=== PATIENT | female | born 1950 | race Caucasian/White ===

== ENCOUNTER 2016-06-18 15:41 | Emergency (ER) | payer OTHER ==
[2016-06-18 15:54] VITALS: TEMP 97.7
--- NOTE | 2016-06-18 16:18 | EDPHY ---
H & P Stated Complaint: mechanical fall down ~10 steps L ankle pain no loc no neck pain HPI/ROS: CHIEF COMPLAINT: fall, left ankle pain HISTORY OF PRESENT ILLNESS: patient was walking down a set of metal stairs in the snow approximately 2 hours ago when she slipped, falling down several stairs. She says she rolled down the last few stairs. She does have abrasions to the forehead, the dorsum of the right fingers, and the left hand. She primarily has a severe left ankle pain. Unable to attempt to walk on it due to pain. She has no loss of conscious. No headache. No neck pain or stiffness. No bruising or signs of trauma to the face. She has no chest or back pain. No abdominal pain. No pain in the upper extremities or right leg despite the abrasions. Does not take any medications of any kind. No other associated complaints or modifying factors. REVIEW OF SYSTEMS: Ten systems reviewed and are negative unless otherwise noted in the HPI EXAMINATION General Appearance: Alert, no distress Head: normocephalic . Superficial abrasion to the right forehead. No Chao sign. No ecchymosis of the forehead. No hematoma. No depression. No raccoon eyes. Eyes: Pupils equal and round, no conjunctival pallor or injection . EOMs intact. ENT, Mouth: Mucous membranes moist . Uvula midline. No erythema or edema. Neck: Normal inspection . No bony tenderness. Painless range of motion all planes. No step-off or deformity. Respiratory: No dyspnea or retractions. No distress Cardiovascular: Regular rate and rhythm. No murmur. Pulses intact distally. Symmetric DP, PT and radial pulses are 2+. Gastrointestinal: No distention . Nontender. No tympany. Neurological: A&Ox4, sensory symmetric, strength symmetric A 5/5. No pronator drift. No dysmetria. Skin: Warm and dry . Superficial abrasions to the right knee, dorsum of the right fingers 2 through 4, dorsum of the left hand and fingers. No lacerations. There is ecchymosis over the left lateral ankle. Extremities: Tender to palpation of the left lateral malleolus with associated ecchymosis. No crepitus. No tenderness of the left foot, ankle or proximal fibula. Range of motion not tested on the ankle due to pain. Range of motion of the left knee is fully intact. Range of motion of the right knee fully intact. No tenderness to palpation of the right knee. Neurovascular intact distal to the left ankle pain. DIFFERENTIAL DIAGNOSES: Including but not limited to Ankle fracture, ankle dislocation, ankle sprain, ecchymosis, contusion, abrasions, soft tissue injury, closed head injury MDM: 4:15 p.m. left ankle pain after fall. She does have some abrasions to the knee and the dorsum of the hands. There is a superficial abrasion to the forehead. No neuro deficits. No loss of conscious. No severe mechanism that would warrant a CT scan. She does not take any blood thinners. She has no headache of any kind. X-ray of the ankle Has been ordered 5:15 p.m. Ankle x-ray reveals no acute fracture of the distal fibula. There is mention of an abnormal appearance of the navicular, age indeterminate. I reexamined the patient, and the x-ray does not correlate clinically. She has no pain over the navicular or syndesmosis. She has no pain at the calcaneus or the posterior malleolar region. I do feel this is more likely to be a sprain. Given the ecchymosis I have placed her in a boot and crutches. She is to remain nonweightbearing at this painful, or weight-bearing as tolerated. I did discuss CT scan here in the emergency department, but I do not feel she would benefit from this As her x-ray does not correlate clinically. For acute navicular injury. Nor is there any evidence of navicular body fracture. She will be discharged home in the boot with crutches and instructed to follow up with Orthopedics in 1-2 weeks. She is to return to the ER for any worsening pain, numbness, tingling or cyanosis. She is comfortable with this plan and discharged home in stable condition. ED Precautions: Worsening pain. Erythema, edema, cyanosis, pallor, paresthesia or anesthesia. SUPERVISION: This patient was independently evaluated without the aide of supervising physician. Source: Patient - Personal History Current Tetanus/Diphtheria Vaccine: Unsure Current Tetanus Diphtheria and Acellular Pertussis (TDAP): Unsure - Medical/Surgical History Hx Asthma: No Hx Chronic Respiratory Disease: No Hx Diabetes: No Hx Cardiac Disease: No Hx Renal Disease: No Hx Cirrhosis: No Hx Alcoholism: No Hx HIV/AIDS: No Hx Splenectomy or Spleen Trauma: No Other PMH: denies - Social History Smoking Status: Never smoked Constitutional: Initial Vital Signs Temperature (C) 97.7 F 06/18/16 15:51 Heart Rate 76 06/18/16 15:51 Respiratory Rate 16 06/18/16 15:51 Blood Pressure 175/91 H 06/18/16 15:51 O2 Sat (%) 97 06/18/16 15:51 O2 Delivery Mode Room Air Allergies/Adverse Reactions: Sulfa (Sulfonamide Antibiotics) Allergy (Severe, Verified 09/16/12 18:43) Home Medications: Medication Instructions Recorded Miscellaneous Medical Supply [NO 1 ea MISC AD 09/16/12 HOME MEDS] oxyCODONE/APAP 5/325 [Percocet 1 tab PO Q6 #10 tab 09/16/12 5/325] Acetaminophen/Codeine 300/30Mg 1 each PO Q6 PRN #15 tab 06/18/16 [Tylenol #3 (*)] Departure - Departure Disposition: Home, Routine, Self-Care Clinical Impression: Left ankle sprain Qualifiers: Encounter type: initial encounter Involved ligament of ankle: unspecified ligament Qualified Code(s): S93.402A - Sprain of unspecified ligament of left ankle, initial encounter Condition: Good Instructions: Ankle Sprain (ED) Additional Instructions: follow-up with orthopedics in 1-2 days if no improvement in the pain. Return to ER for worsening pain, numbness or tingling of the foot. Weightbearing as tolerated with the boot and crutches. Nonweightbearing of painful Referrals: Gene Diaz MD [Primary Care Provider] - As per Instructions Sabi Zepeda MD [Medical Doctor] - As per Instructions Prescriptions: Acetaminophen/Codeine 300/30Mg [Tylenol #3 (*)] 1 each PO Q6 PRN #15 tab PRN Reason: Pain, Mild
[2016-06-18 17:30] VITALS: BP 142/62; PULSE 75; RESP 18; O2SAT 96
== END 2016-06-18 17:31 | disposition home or self-care (01) ==
DX: S93.402A Sprain of unspecified ligament of left ankle, initial encounter (principal); W10.8XXA Fall (on) (from) other stairs and steps, initial encounter
CPT/HCPCS: 73610; 99283; L4386

== ENCOUNTER 2018-08-17 17:00 | Emergency (ER) | payer OTHER ==
--- NOTE | 2018-08-17 17:27 | EDPHY ---
H & P Stated Complaint: Headache, nausea, anxiety - Personal History Current Tetanus Diphtheria and Acellular Pertussis (TDAP): Unsure - Medical/Surgical History Hx Asthma: No Hx Chronic Respiratory Disease: No Hx Diabetes: No Hx Cardiac Disease: No Hx Renal Disease: No Hx Cirrhosis: No Hx Alcoholism: No Hx HIV/AIDS: No Hx Splenectomy or Spleen Trauma: No Other PMH: head injury injury 02/2018 - Social History Smoking Status: Never smoked Time Seen by Provider: 08/17/18 17:15 HPI/ROS: Chief complaint: Headache History of present illness: This is a 67-year-old female who presents to the emergency department for a headache. She reports a severe, throbbing pain on the left side of her head. It began this afternoon. She had a similar headache yesterday afternoon. She also had a similar type headache last week. She denies specific precipitating factors. She denies alleviating factors. She has had associated nausea and occasional vomiting, dry mouth, and generalized malaise. She did see her doctor today who ordered blood studies which have yet to be reported to her. She does not have a history of headaches. She denies fever or cold symptoms. She denies trauma. This was not thunderclap in nature. No associated neurologic symptoms including paresthesias, weakness or paralysis or bowel or bladder dysfunction. Review of systems: A 10 point review of systems was obtained and other than described above was negative (Gene Sargent) - Physical Exam Exam: General Appearance: Alert, appears upset and anxious. Eyes: Pupils equal and round no pallor or injection. ENT, Mouth: Mucous membranes moist. Respiratory: There are no retractions, lungs are clear to auscultation. Cardiovascular: Regular rate and rhythm. Gastrointestinal: Abdomen is soft and non tender, no masses, bowel sounds normal. Neurological: Alert and oriented x4. Cranial nerves 2-12 grossly intact. Strength and sensation intact and symmetrical. No meningismus. Skin: Warm and dry, no rashes. Musculoskeletal: Neck is supple non tender. Extremities are symmetrical, full range of motion. Psychiatric: Patient is oriented X 3, appears upset and anxious. (Gene Sargent) Constitutional: Initial Vital Signs Temperature (C) 36.8 C 08/17/18 17:05 Heart Rate 101 H 08/17/18 17:05 Respiratory Rate 18 08/17/18 17:05 Blood Pressure 194/90 H 08/17/18 17:05 O2 Sat (%) 98 08/17/18 17:05 O2 Delivery Mode Room Air Allergies/Adverse Reactions: Sulfa (Sulfonamide Antibiotics) Allergy (Severe, Verified 09/16/12 18:43) Home Medications: Medication Instructions Recorded oxyCODONE/APAP 5/325 [Percocet 1 tab PO Q6 #10 tab 09/16/12 5/325] Acetaminophen/Codeine 300/30Mg 1 each PO Q6 PRN #15 tab 06/18/16 [Tylenol #3 (*)] Medical Decision Making - Diagnostics Imaging: Discussed imaging studies w/ call or contact centre operator Radiologist - Diagnostics Imaging Results: Imaging Impressions Head CT 08/17/18 17:32 Impression: No acute intracranial process. Findings and recommendations discussed with DEMI Velarde at 1834 hour, 2018. Brain MRI 08/17/18 19:25 Impression: 1. No acute intracranial findings. 2. Atrophy with white matter change most likely related to chronic microvascular ischemic gliosis. Findings and recommendations discussed with Tiffanie Graf MD at 2127 hour, 2018. ED Course/Re-evaluation: Patient seen in conjunction with my secondary supervising physician Dr. Tiffanie Graf. Patient presents to the emergency department for headache. She is nontoxic. She has a nonfocal neurologic exam. Evaluation has been unremarkable including CBC, CMP, thyroid testing, ESR, CT of the head and MRI of the head. On re-evaluation she is feeling better. I have discussed with her it is not clear as to the cause of her symptoms. However I do believe she can follow up on an outpatient basis. She will be discharged home. She is to follow up with her primary care doctor and Neurology for further care. Referral information for Neurology is given. Return precautions are discussed. She has voiced understanding and agreement with plan. (Gene Sargent) Differential Diagnosis: Included but not limited to migraine headache, cluster headache, tension headache, intracranial lesion, intracranial bleed, vasculitis, infectious pathology including urinary tract infection (Gene Sargent) Other Provider: I evaluated and participated in the management of the patient. I also evaluated the patient independently. My co-signature indicates that I have reviewed this chart and I agree with the findings and plan of care as documented. My personal H&P findings include: 67-year-old female presenting initially with complaints of headache and difficulty making decisions. On my initial evaluation the patient reports that she went to see Dr. Moore today because of ongoing GI issues which involve urinating "whites squiggly things" in her urine and passing worms in her bowel movements. Patient has had the symptoms for over a year. Over the last 5 days she has also been complaining of left-sided headache and difficulty making decisions. 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 No history of focal neurologic deficits, no history of word-finding difficulties, speech difficulties, slurred speech, weakness in the arms or legs, numbness or tingling in the arms or legs. Patient has had a close head injury in February. No recent head injuries. She and her family reports that she has multiple environmental allergies, and allergies to chemicals. On physical exam: Patient is alert and oriented, speaking fluidly. Moving all extremities x4 although she has some generalized weakness in both legs. Cranial nerves 2-12 are intact. No tenderness to palpation over the temporal arteries. Somewhat tangential in her thought process. Pupils equal round reactive to light, extraocular movements intact, lungs are clear to auscultation. Abdomen soft and nontender. Heart regular rate and rhythm. Patient's laboratory evaluation is largely unremarkable. She had a head CT which demonstrates no acute intracranial findings. To me, the patient seems to be developing some cognitive difficulty which may or may not be related to severe anxiety which is present when she 1st presented. However, given her age and her complaints of a headache in conjunction the this difficulty, MRI was ordered. (Tiffanie Graf) - Data Points Laboratory Results: Laboratory Results 08/17/18 17:40 08/17/18 08/17/18 18:00 17:40 Hct 39.1 % % (38.0-47.0) ESR 15 MM/HR MM/HR (0-30) Urine Color COLORLESS Urine Appearance CLEAR Urine pH 6.0 (5.0-7.5) Ur Specific [place] 1.001 L (1.002-1.030) Urine Protein NEGATIVE (NEGATIVE) Urine Ketones TRACE H (NEGATIVE) Urine Blood NEGATIVE (NEGATIVE) Urine Nitrate NEGATIVE (NEGATIVE) Urine Bilirubin NEGATIVE (NEGATIVE) Urine Urobilinogen NEGATIVE EU EU (0.2-1.0) Ur Leukocyte Esterase NEGATIVE (NEGATIVE) Urine RBC 1-3 /hpf /hpf (0-3) Urine WBC 1-3 /hpf /hpf (0-3) Ur Epithelial Cells NONE SEEN /lpf /lpf (NONE-1+) Urine Glucose NEGATIVE (NEGATIVE) Medications Given: Discontinued Medications Sodium Chloride (Ns) 1,000 mls @ 500 mls/hr IV CONT DEMETRIO Stop: 02/13/19 17:44 Last Admin: 08/17/18 17:47 Dose: 1,000 mls Lorazepam (Ativan Injection) 0.5 mg IVP EDNOW ONE Stop: 08/17/18 17:33 Last Admin: 08/17/18 17:47 Dose: 0.5 mg Lorazepam (Ativan Injection) 0.5 mg IVP EDNOW ONE Stop: 08/17/18 18:08 Last Admin: 08/17/18 18:07 Dose: 0.5 mg Departure - Departure Disposition: Home, Routine, Self-Care Clinical Impression: Headache Qualifiers: Headache type: unspecified Headache chronicity pattern: acute headache Intractability: not intractable Qualified Code(s): R51 - Headache Condition: Good Instructions: Acute Headache (ED) Additional Instructions: Follow-up with your primary care doctor this week for continued evaluation and care I would also recommend you follow up with a neurologist for continued evaluation and care If symptoms worsen or new symptoms develop return to the emergency room for recheck Referrals: Rhiannon Moore MD [Primary Care Provider] - As per Instructions Yosvany Estrella MD [Medical Doctor] - As per Instructions
[2018-08-17] MEDS ORDERED: LORazepam 2 MG/ML INJ IVP ONE ×2 (17:32→18:07)
[2018-08-17] MEDS ORDERED: NS 1,000 ML IV SCH (17:45)
[2018-08-17 21:24] VITALS: BP 133/75
== END 2018-08-17 22:22 | disposition home or self-care (01) ==
LOC: SUPCPDRO 17:00
DX: R51 Headache (principal); R11.0 Nausea; F41.9 Anxiety disorder, unspecified
CPT/HCPCS: 70450; 70551; 96361; 96374; 96376; 99285; J2060